=== PATIENT | male | born 1965 | race Caucasian/White ===

== ENCOUNTER 2017-08-04 10:40 | Day surgery (SDC) | payer MEDICAID ==
[2017-06-16 10:40] VITALS: BMI 34.4
[2017-08-04] MEDS ORDERED: Propofol 10 mg/ml Inj (20 ML) ONE (12:02)
[2017-08-04] MEDS ORDERED: Sodium Chloride 0.9% 1,000 ML IV SCH (13:30)
[2017-08-04 13:47] VITALS: BP 133/88; PULSE 47; RESP 18; TEMP 97.6; O2SAT 100
== END 2017-08-04 13:38 | disposition home or self-care (01) ==
LOC: ENDO 10:40
PROVIDERS: ATTEND Internal Medicine
DX: R10.30 Lower abdominal pain, unspecified (principal); K64.8 Other hemorrhoids; E11.9 Type 2 diabetes mellitus without complications; Z79.84 Long term (current) use of oral hypoglycemic drugs
CPT/HCPCS: 45378; 82948; J2001; J2704; J7040 ×2

== ENCOUNTER 2018-03-27 18:26 | Observation (INO) | payer OTHER, MEDICAID ==
[2018-03-27 18:50] VITALS: BMI 36.0
--- NOTE | 2018-03-27 19:46 | ED PDOC ---
Arrival/HPI - General Chief Complaint: Syncope Time Seen by Provider: 03/27/18 19:15 Historian: Patient, Clinical Application Specialist - History of Present Illness Narrative History of Present Illness (Text): 03/27/18 19:46 Patient is a 52 year old male who presents to the Emergency department with his son complaining of experiencing a syncopal episode. Patient is primarily Welsh speaking and a upper doubler was used with patient's permission. Patient states that at approximately 17:30-17:35 he was going to work when he started feeling dizzy and lost consciousness. He admits to having a headache and feeling right arm pain and numbness prior to the event. Patient woke up and found blood coming out of his nose. He denies currently experiencing any arm pain or numbness. Patient admits to experiencing chest pain but is unable to fully describe when it started or the character. His last syncopal event was approximately 6 months ago and at that time he was evaluated by his PMD, a industrial health engineer, and ENT physician. As per patient he underwent a stress test, which was fine. He also states that ENT physician evaluation was benign. Patient denies fevers, chills, cough, shortness of breath, dyspnea on exertion, abdominal pain, nausea, vomiting, diarrhea, back pain, neck pain, or any other complaint. Time/Duration: 4-6 hours Symptom Onset: Sudden Symptom Course: Improving Context: Walking Past Medical History - Provider Review Nursing Documentation Reviewed: Yes - Infectious Disease Hx of Infectious Diseases: None - Tetanus Immunization Tetanus Immunization: Unknown - Past Medical History Past Medical History: No Previous - Cardiac Hx Cardiac Disorders: No - Pulmonary Hx Respiratory Disorders: No - Neurological Hx Neurological Disorder: No - HEENT Hx HEENT Disorder: Yes (Wears glasses) - Renal Hx Renal Disorder: No - Endocrine/Metabolic Hx Endocrine Disorders: Yes Hx Diabetes Mellitus Type 2: Yes - Hematological/Oncological Hx Blood Disorders: No - Integumentary Hx Dermatological Disorder: No - Musculoskeletal/Rheumatological Hx Musculoskeletal Disorders: No - Gastrointestinal Hx Gastrointestinal Disorders: No - Genitourinary/Gynecological Hx Genitourinary Disorders: No - Psychiatric Hx Psychophysiologic Disorder: No Hx Substance Use: No - Past Surgical History Past Surgical History: No Previous - Anesthesia Hx Anesthesia Reactions: No Hx Malignant Hyperthermia: No - Suicidal Assessment Feels Threatened In Home Enviroment: No Family/Social History - Physician Review Nursing Documentation Reviewed: Yes Family/Social History: No Known Family HX Smoking Status: Never Smoked Hx Alcohol Use: Yes (1 BEER EVERY FEW WEEKS) Hx Substance Use: No Hx Substance Use Treatment: No Allergies/Home Meds Allergies/Adverse Reactions: Allergies No Known Allergies Allergy (Verified 03/27/18 18:49) Home Medications: Home Meds Medication Instructions Recorded Confirmed Alogliptin Benzoate [Alogliptin] 25 mg PO DAILY 08/04/17 08/04/17 Empagliflozin [Jardiance] 10 mg PO DAILY 08/04/17 08/04/17 MetFORMIN [glucOPHAGE] 1,000 mg PO BID 08/04/17 08/04/17 Review of Systems - Physician Review All systems were reviewed & negative as marked: Yes - Review of Systems Constitutional: absent: Fevers, Night Sweats Respiratory: absent: SOB, Cough Cardiovascular: Chest Pain, Syncope Gastrointestinal: absent: Abdominal Pain, Diarrhea, Nausea, Vomiting Genitourinary Male: absent: Urinary Output Changes Musculoskeletal: absent: Back Pain, Neck Pain Neurological: Headache, Dizziness Physical Exam Vital Signs Reviewed: Yes Vital Signs Temp Pulse Resp BP Pulse Ox 03/27/18 18:50 98.6 F 76 18 144/87 95 Temperature: Afebrile Blood Pressure: Normal Pulse: Regular Respiratory Rate: Normal Appearance: Positive for: Well-Appearing Mental Status: Positive for: Alert and Oriented X 3 - Systems Exam Head: Present: Atraumatic, Normocephalic Pupils: Present: PERRL Extroacular Muscles: Present: EOMI Conjunctiva: Present: Normal Mouth: Present: Moist Mucous Membranes Nose (Internal): Present: Normal Inspection. No: Septal Hematoma, Epistaxis Neck: Present: Normal Range of Motion Respiratory/Chest: Present: Clear to Auscultation, Good Air Exchange. No: Respiratory Distress, Accessory Muscle Use Cardiovascular: Present: Regular Rate and Rhythm, Normal S1, S2. No: Murmurs Abdomen: No: Tenderness, Distention, Peritoneal Signs Back: Present: Normal Inspection Upper Extremity: Present: Normal Inspection. No: Cyanosis, Edema Lower Extremity: Present: Normal Inspection. No: Edema Neurological: Present: GCS=15, CN II-XII Intact, Speech Normal Skin: Present: Warm, Dry, Normal Color. No: Rashes Psychiatric: Present: Alert, Oriented x 3, Normal Insight, Normal Concentration Medical Decision Making ED Course and Treatment: 03/27/18 19:46 Impression: 52 year old male complaining of experiencing an episode of syncope approximately 3 hours ago. Differential Diagnosis included but are not limited to: Plan: --Maxillofacial CT without Contrast -- Head CT without Contrast -- EKG -- Labs -- Cardiac enzymes -- Blood work -- Orthostatic vital signs. -- Reassess and disposition Prior Visits: Notes and results from previous visits were reviewed. Progress Notes: 03/27/18 21:56 admit deferred to hospitalist by dr. aldridge 03/27/18 22:41 admit accepted by the hospitalist dr. garcia, patient to be admitted for syncopal event, no acute symptoms prior to the event such as headache/chest pain/abdominal pain 03/27/18 22:43 - Lab Interpretations Lab Results: Lab Results 03/27/18 19:24: POC Glucose (mg/dL) 125 H - RAD Interpretation Narrative RAD Interpretations (Text): 03/27/18 21:59 CT Head Without IV contrast. CLINICAL HISTORY: DIZZY AND FELL TECHNIQUE: Axial computed tomography images of the head/brain without intravenous contrast. COMPARISON: None provided. FINDINGS: BRAIN No acute intraparenchymal hemorrhage. No mass lesion. No CT evidence for acute territorial infarct. No midline shift or extra-axial collections. VENTRICLES: No hydrocephalus. ORBITS: The orbits are unremarkable. SINUSES AND MASTOIDS: The paranasal sinuses and mastoid air cells are clear. BONES: No fracture. SOFT TISSUES: Unremarkable. IMPRESSION: No acute intracranial abnormality. 03/27/18 21:59 CT Maxillofacial Without IV contrast. CLINICAL HISTORY: DIZZY AND FELL TECHNIQUE: Axial computed tomography images of the face without intravenous contrast. Sagittal and coronal reformatted images were generated. CONTRAST: Without COMPARISON: None provided. FINDINGS: BONES: No acute fracture or aggressive appearing osseous lesion. The mandible is intact. SOFT TISSUES: The paranasal soft tissues are unremarkable. SINUSES: Minimal polypoid changes left maxillary sinus. ORBITS: The orbits are normal. No retrobulbar hematoma or mass. IMPRESSION: No acute osseous abnormality demonstrated. Radiology Orders: 03/27/18 19:22 HEAD W/O CONTRAST [CT] Stat 03/27/18 19:40 MAXILLOFACIAL W/O CONTRAST [CT] Stat Business Systems Developer: Radiologist - EKG Interpretation EKG Interpretation (Text): 03/27/18 20:15 1917: nsr at 71 bpm, nml qrs, nml axis, no acute sttw abn Interpreted by ED Physician: Yes - Scribe Statement The provider has reviewed the documentation as recorded by the Scribe Butch Lisetkong Provider Scribe Attestation: All medical record entries made by the Scribe were at my direction and personally dictated by me. I have reviewed the chart and agree that the record accurately reflects my personal performance of the history, physical exam, medical decision making, and the department course for this patient. I have also personally directed, reviewed, and agree with the discharge instructions and disposition. Disposition/Present on Arrival - Present on Arrival Any Indicators Present on Arrival: No History of DVT/PE: No History of Uncontrolled Diabetes: Yes Urinary Catheter: No History of Decub. Ulcer: No History Surgical Site Infection Following: None - Disposition Have Diagnosis and Disposition been Completed?: Yes Diagnosis: Syncope Disposition: HOSPITALIZED Disposition Time: 21:00 Patient Plan: Admission Patient Problems: Current Active Problems Problem Status Onset Syncope Acute Condition: STABLE
[2018-03-27 20:07] LABS: BASO # 0.02 K/mm3 (0.0-2.0); BASO % 0.5 % (0.0-3.0); EOS # 0.1 (0.0-0.7); EOS % 2.9 % (1.5-5.0); GRAN # 2.5 (1.4-6.5); GRAN % 56.4 % (50.0-68.0); LYMPH # 1.4 (1.2-3.4); LYMPH % 32.5 % (22.0-35.0); MEAN CELL VOLUME 81.4 fl (80.0-105.0); MEAN CORPUSCULAR HEMOGLOBIN 27.5 pg (25.0-35.0); MEAN CORPUSCULAR HGB CONC 33.8 g/dl (31.0-37.0); MEAN PLATELET VOLUME 10.3 fl (7.0-11.0); MONO # 0.3 (0.1-0.6); MONO % 7.7 % (1.0-6.0); RBC 4.73 10^6/uL (3.5-6.1); WHITE BLOOD COUNT 4.4 10^3/ul (4.5-11.0)
[2018-03-27 20:12] LABS: BLOOD UREA NITROGEN 22 mg/dL (7-21); INR 1.11; PARTIAL THROMBOPLASTIN TIME 29.1 Seconds (25.1-36.5); PROTHROMBIN TIME 12.7 SECONDS (9.4-12.5)
[2018-03-27 20:13] LABS: ALB/GLOB RATIO 1.2 (1.1-1.8); ALBUMIN 4.3 g/dL (3.0-4.8); ALT/SGPT 35 U/L (7-56); AST/SGOT 34 U/L (17-59); CALCIUM 9.6 mg/dL (8.4-10.5); GFR NON-AFRICAN AMERICAN > 60
[2018-03-27 20:24] LABS: TROPONIN I < 0.01 ng/mL
[2018-03-28] MEDS ORDERED: Dextrose 50% SYRINGE Inj (50 ml) IV PRN (00:02)
--- NOTE | 2018-03-28 00:28 | CP.PCM.HP ---
<Miranda Krishnan - Last Filed: 03/28/18 00:05> History of Present Illness - History of Present Illness History of Present Illness: 52yo male PMHx DM2, HTN?, HLD? and multiple episodes of dizziness/vertigo presents with dizziness and an episode of syncope that occured at 5pm on day of admission. Patient reports he was walking to work and started to feel dizzy and fell and hit his face. He reports LOC for 1-2 minutes and woke up when he noticed he was bleeding from his nose. Patient was with a friend who witnessed his fall and did not report any seizure like activity ie biting his tongue, eyes rolled back, loss of bowel/bladder movement, tonic-clonic movement in any extremity. Patient reports that prior to the episode he was feeling dizzy and weak and slightly short of breath. He reports he has having such episodes for the past year and his last episode was 3 months ago. When he returned home after his fall he checked his blood sugar which was 212. Patient denied any change in gait or any focal weakness. Patient also complained of a 6/10 frontal headache after the episode and some tinnitus at the time of the event. Of note, patient was seen by Dr. Mcrae in the past and was told to be on Meclizine but patient did not continue the medication. Patient was also seen by ENT 1 month ago and exam was unremarkable as per patient. Patient was also seen by Dr. Lozano cardiology for a stress test 1 year ago which was unremarkable as per the patientl PMHx: DM2, HTN?, HLD? PSurgHx: denies Meds: metformin 1000 bid, Alogliptin 25mg po qd, Jardiance 10mg po qd, Oxycodone 5mg prn, Gabapentin 300mg po bid ALL: NKDA SocHx: smoked 10-15 cigarettes daily for 40 years- quit 2 months ago and now smokes E cigarettes [Juul], denies EtOH/drug use. Lives at home with . Works at a [employer] FamHx: father with colon ca? and CVA; mother with CAD and HTN; sister has cancer but unknown type PMD: Saleeb [last saw 5 days ago for a routine check up] Neuro: has seen Dr. Mcrae in the past Cardio: has seen Dr. Lozano in the past ENT: on - cannot remember the name Pharmacy: [facility] Insurance: [email or web address] ROS: admits: headache [frontal], dizziness, tinnitus, SOB prior to syncopal event, diffuse abdominal pain, diarrhea 1 week ago [unable to quantify], polyuria, polydipsia, numbness/tingling b/l LE denies: fever, chills, chest pain, palpitations, cough, nausea, vomiting, constipation, dysuria, melena/hematochezia, pain in b/l LE Present on Admission - Present on Admission Any Indicators Present on Admission: No Review of Systems - Review of Systems All systems: reviewed and no additional remarkable complaints except Review of Systems: as per HPI Past Patient History - Infectious Disease Hx of Infectious Diseases: None - Tetanus Immunizations Tetanus Immunization: Unknown - Past Social History Smoking Status: Never Smoked - CARDIAC Hx Cardiac Disorders: No - PULMONARY Hx Respiratory Disorders: No - NEUROLOGICAL Hx Neurological Disorder: No - HEENT Hx HEENT Problems: Yes (Wears glasses) - RENAL Hx Chronic Kidney Disease: No - ENDOCRINE/METABOLIC Hx Endocrine Disorders: Yes Hx Diabetes Mellitus Type 2: Yes - HEMATOLOGICAL/ONCOLOGICAL Hx Blood Disorders: No - INTEGUMENTARY Hx Dermatological Problems: No - MUSCULOSKELETAL/RHEUMATOLOGICAL Hx Musculoskeletal Disorders: No - GASTROINTESTINAL Hx Gastrointestinal Disorders: No - GENITOURINARY/GYNECOLOGICAL Hx Genitourinary Disorders: No - PSYCHIATRIC Hx Psychophysiologic Disorder: No Hx Substance Use: No - SURGICAL HISTORY Hx Surgeries: No - ANESTHESIA Hx Anesthesia Reactions: No Hx Malignant Hyperthermia: No Meds Allergies/Adverse Reactions: Allergies Allergy/AdvReac Type Severity Reaction Status Date / Time No Known Allergies Allergy Verified 03/27/18 18:49 Physical Exam - Constitutional Appears: Non-toxic, No Acute Distress - Head Exam Head Exam: ATRAUMATIC, NORMAL INSPECTION, NORMOCEPHALIC - Eye Exam Eye Exam: EOMI, Normal appearance, Nystagmus (horizontal), PERRL. absent: Conjunctival injection, Scleral icterus - ENT Exam ENT Exam: Mucous Membranes Moist, Normal Oropharynx, TM's Normal Bilaterally - Neck Exam Neck exam: Positive for: Full Rom. Negative for: Lymphadenopathy - Respiratory Exam Respiratory Exam: Clear to Auscultation Bilateral, NORMAL BREATHING PATTERN. absent: Accessory Muscle Use, Rales, Rhonchi, Wheezes, Respiratory Distress - Cardiovascular Exam Cardiovascular Exam: REGULAR RHYTHM, +S1, +S2. absent: Systolic Murmur - GI/Abdominal Exam GI & Abdominal Exam: Normal Bowel Sounds, Soft. absent: Firm, Guarding, Rigid, Tenderness - Rectal Exam Rectal Exam: Deferred - Extremities Exam Extremities exam: Positive for: normal capillary refill, normal inspection, pedal pulses present. Negative for: pedal edema - Back Exam Back exam: NORMAL INSPECTION. absent: rash noted - Neurological Exam Neurological exam: Alert, CN II-XII Intact, Oriented x3 - Psychiatric Exam Psychiatric exam: Normal Affect, Normal Mood - Skin Skin Exam: Dry, Intact, Normal Color, Warm Results - Vital Signs Recent Vital Signs: Last Vital Signs Temp 98.6 F 03/27/18 18:50 Pulse 76 03/27/18 18:50 Resp 18 03/27/18 18:50 BP 144/87 03/27/18 18:50 Pulse Ox 95 03/27/18 18:50 - Labs Result Diagrams: 03/27/18 19:56 03/27/18 19:56 Labs: Laboratory Results - last 24 hr 03/27/18 03/27/18 03/27/18 19:24 19:56 19:56 WBC 4.4 L D RBC 4.73 Hgb 13.0 L Hct 38.5 L MCV 81.4 MCH 27.5 MCHC 33.8 RDW 14.0 Plt Count 221 MPV 10.3 Gran % 56.4 Lymph % (Auto) 32.5 Snyder % (Auto) 7.7 H Eos % (Auto) 2.9 Baso % (Auto) 0.5 Gran # 2.50 Lymph # (Auto) 1.4 Snyder # (Auto) 0.3 Eos # (Auto) 0.1 Baso # (Auto) 0.02 PT INR APTT Sodium 139 Potassium 3.8 Chloride 104 Carbon Dioxide 26 Anion Gap 14 BUN 22 H Creatinine 1.0 Est GFR ( Amer) > 60 Est GFR (Non-Af Amer) > 60 POC Glucose (mg/dL) 125 H Random Glucose 115 H Calcium 9.6 Magnesium 1.9 Total Bilirubin 0.4 AST 34 ALT 35 Alkaline Phosphatase 70 Troponin I < 0.01 Total Protein 8.0 Albumin 4.3 Globulin 3.7 Albumin/Globulin Ratio 1.2 03/27/18 19:56 WBC RBC Hgb Hct MCV MCH MCHC RDW Plt Count MPV Gran % Lymph % (Auto) Snyder % (Auto) Eos % (Auto) Baso % (Auto) Gran # Lymph # (Auto) Snyder # (Auto) Eos # (Auto) Baso # (Auto) PT 12.7 H INR 1.11 APTT 29.1 Sodium Potassium Chloride Carbon Dioxide Anion Gap BUN Creatinine Est GFR ( Amer) Est GFR (Non-Af Amer) POC Glucose (mg/dL) Random Glucose Calcium Magnesium Total Bilirubin AST ALT Alkaline Phosphatase Troponin I Total Protein Albumin Globulin Albumin/Globulin Ratio Assessment & Plan - Assessment and Plan (Free Text) Assessment: 52yo male PMHx DM2, HTN?, HLD? and multiple episodes of dizziness/vertigo presents with dizziness and an episode of syncope that occured at 5pm on day of admission. Patient admitted to [facility] for further management Plan: Dizziness and syncope -dizziness likely 2/2 to BPPV; syncope 2/2 to cardiac etiology vs neurological etiology -Head CT: prelim unremarkable- f/u official read -Maxillofacial CT: prelim unremarkable- f/u official read -Meclizine 25mg po bid -physical therapy -f/u AM labs -Neuro consult: Dr. Mcrae Chest pain prior to syncope -troponin negative x 1 f/u troponin x 2 -EKG: NSR -f/u Echo -consider Cardiology consult Abdominal pain and diarrhea -unremarkable abdominal exam -monitor Hx of DM2 -f/u HgbA1c -RISS achs -Accucheck achs -continue home Neurontin 300 q12 for neuropathy -polydipsia and polyuria likely secondary to DM2 Hx of HLD? -f/u FLP Hx of HTN? -monitor off medications -maintain normotension DVT ppx: SCDs and Heparin [id number] Diet: HHD with INTERMEDIATE Discussed with Dr. Leonel Krishnan PGY3 <Dexter Carter - Last Filed: 03/28/18 01:42> Results - Vital Signs Recent Vital Signs: Last Vital Signs Temp 98.6 F 03/27/18 18:50 Pulse 76 03/27/18 18:50 Resp 18 03/27/18 18:50 BP 144/87 03/27/18 18:50 Pulse Ox 98 03/28/18 00:38 - Labs Result Diagrams: 03/27/18 19:56 03/27/18 19:56 Labs: Laboratory Results - last 24 hr 03/27/18 03/27/18 03/27/18 19:24 19:56 19:56 WBC 4.4 L D RBC 4.73 Hgb 13.0 L Hct 38.5 L MCV 81.4 MCH 27.5 MCHC 33.8 RDW 14.0 Plt Count 221 MPV 10.3 Gran % 56.4 Lymph % (Auto) 32.5 Snyder % (Auto) 7.7 H Eos % (Auto) 2.9 Baso % (Auto) 0.5 Gran # 2.50 Lymph # (Auto) 1.4 Snyder # (Auto) 0.3 Eos # (Auto) 0.1 Baso # (Auto) 0.02 PT INR APTT Sodium 139 Potassium 3.8 Chloride 104 Carbon Dioxide 26 Anion Gap 14 BUN 22 H Creatinine 1.0 Est GFR ( Amer) > 60 Est GFR (Non-Af Amer) > 60 POC Glucose (mg/dL) 125 H Random Glucose 115 H Calcium 9.6 Magnesium 1.9 Total Bilirubin 0.4 AST 34 ALT 35 Alkaline Phosphatase 70 Troponin I < 0.01 Total Protein 8.0 Albumin 4.3 Globulin 3.7 Albumin/Globulin Ratio 1.2 03/27/18 19:56 WBC RBC Hgb Hct MCV MCH MCHC RDW Plt Count MPV Gran % Lymph % (Auto) Snyder % (Auto) Eos % (Auto) Baso % (Auto) Gran # Lymph # (Auto) Snyder # (Auto) Eos # (Auto) Baso # (Auto) PT 12.7 H INR 1.11 APTT 29.1 Sodium Potassium Chloride Carbon Dioxide Anion Gap BUN Creatinine Est GFR ( Amer) Est GFR (Non-Af Amer) POC Glucose (mg/dL) Random Glucose Calcium Magnesium Total Bilirubin AST ALT Alkaline Phosphatase Troponin I Total Protein Albumin Globulin Albumin/Globulin Ratio Attending/Attestation - Attestation I have personally seen and examined this patient.: Yes I have fully participated in the care of the patient.: Yes I have reviewed all pertinent clinical information: Yes
[2018-03-28] MEDS: Insulin Lispro (humaLOG) LOW Coverage SC SCH ×3 (01:31→12:22)
[2018-03-28 02:28] LABS: URINE BILIRUBIN NEGATIVE (NEGATIVE); URINE BLOOD NEGATIVE (NEGATIVE); URINE GLUCOSE (UA) >=1000 mg/dL (NEGATIVE); URINE LEUKOCYTE ESTERASE NEGATIVE Leu/uL (NEGATIVE); URINE PROTEIN NEGATIVE mg/dL (<30 mg/dL)
[2018-03-28 02:47] LABS: URINE APPEARANCE CLEAR (CLEAR); URINE COLOR YELLOW (YELLOW)
[2018-03-28 07:03] VITALS: O2SAT 94
[2018-03-28 07:15] LABS: BASO # 0.01 K/mm3 (0.0-2.0); BASO % 0.2 % (0.0-3.0); EOS # 0.1 (0.0-0.7); EOS % 2.9 % (1.5-5.0); GRAN # 2.05 (1.4-6.5); GRAN % 49.2 % (50.0-68.0); HEMOGLOBIN 12.7 g/dL (14.0-18.0); LYMPH # 1.7 (1.2-3.4); LYMPH % 41.2 % (22.0-35.0); MEAN CELL VOLUME 81.8 fl (80.0-105.0); MEAN CORPUSCULAR HEMOGLOBIN 26.8 pg (25.0-35.0); MEAN CORPUSCULAR HGB CONC 32.8 g/dl (31.0-37.0); MEAN PLATELET VOLUME 10.2 fl (7.0-11.0); MONO # 0.3 (0.1-0.6); MONO % 6.5 % (1.0-6.0); RBC 4.73 10^6/uL (3.5-6.1); RED CELL DISTRIBUTION WIDTH 13.9 % (11.5-14.5); WHITE BLOOD COUNT 4.2 10^3/ul (4.5-11.0)
[2018-03-28 07:28] LABS: ALB/GLOB RATIO 1.1 (1.1-1.8); ALT/SGPT 31 U/L (7-56); AST/SGOT 33 U/L (17-59); BLOOD UREA NITROGEN 23 mg/dL (7-21); CALCIUM 9.5 mg/dL (8.4-10.5); GFR NON-AFRICAN AMERICAN > 60; HDL CHOLESTEROL 34 mg/dL (29-60)
[2018-03-28 07:38] LABS: LDL CHOLESTEROL 89 mg/dL (0-129)
[2018-03-28 07:45] LABS: FREE T4 1.18 ng/dL (0.78-2.19)
--- NOTE | 2018-03-28 09:23 | CARD ---
APPROVED REPORT Date of service: 03/27/2018 EKG Measurement Heart [id number] <Conclusion> Normal sinus rhythm Normal ECG
--- NOTE | 2018-03-28 10:14 | CT ---
Date of service: 03/27/2018 PROCEDURE: CT HEAD WITHOUT CONTRAST. HISTORY: trauma COMPARISON: 02/04/2016 TECHNIQUE: Axial computed tomography images were obtained through the head/brain without intravenous contrast. Radiation dose: Total exam DLP = 875 mGy-cm. This CT exam was performed using one or more of the following dose reduction techniques: Automated exposure control, adjustment of the mA and/or kV according to patient size, and/or use of iterative reconstruction technique. FINDINGS: HEMORRHAGE: No intracranial hemorrhage. BRAIN: No mass effect or edema. No atrophy or chronic microvascular ischemic changes. VENTRICLES: Unremarkable. No hydrocephalus. CALVARIUM: Unremarkable. PARANASAL SINUSES: Unremarkable as visualized. No significant inflammatory changes. MASTOID AIR CELLS: Unremarkable as visualized. No inflammatory changes. OTHER FINDINGS: The report concurs with the preliminary [facility] report IMPRESSION: No acute findings
--- NOTE | 2018-03-28 10:19 | CT ---
Date of service: 03/27/2018 PROCEDURE: CT MAXILLOFACIAL BONES WITHOUT CONTRAST HISTORY: trauma COMPARISON: None available. TECHNIQUE: Contiguous axial CT images of the maxillofacial bones were obtained. Coronal and sagittal reformats were generated. Radiation dose: Total exam DLP = 904.3 mGy-cm. This CT exam was performed using one or more of the following dose reduction techniques: Automated exposure control, adjustment of the mA and/or kV according to patient size, and/or use of iterative reconstruction technique. FINDINGS: NASAL BONES: Unremarkable. ORBITS: Unremarkable. PARANASAL SINUSES/ MASTOIDS: Clear. MAXILLA: Unremarkable. MANDIBLE/ TEMPOROMANDIBULAR JOINTS: Unremarkable. SKULL BASE: Unremarkable. TEMPORAL BONES: Middle ears and mastoid grossly unremarkable. OTHER FINDINGS: The report concurs with the preliminary [facility] report IMPRESSION: Unremarkable non contrast enhanced CT of the maxillofacial bones.
[2018-03-28 12:44] LABS: FOLATE 4.8 ng/mL
--- NOTE | 2018-03-28 15:56 | CON ---
DATE: 03/28/2018 NEUROLOGY CONSULTATION CHIEF COMPLAINT: Syncope/vertigo. HISTORY OF PRESENT ILLNESS: This is a 52-year-old man with history of type 2 diabetes mellitus, hypertension, dyslipidemia who had multiple episodes of dizziness in terms of lightheadedness and vertigo in the past and presented with dizziness in terms of lightheadedness with an episode of syncope that occurred around 5:00 p.m. on the day of admission while he was walking to work and started to feel lightheaded and spinning sensation of the room and hit his face on the ground, lost consciousness for 1 to 2 minutes and woke up and noticed he was bleeding from the nose. His CAT scan of the head showed no acute intracranial abnormality. No history of any seizures, meningitis, or trauma-induced seizures in the past. He reports of feeling lightheaded and had such episodes in the past. About 3 months ago, he also had occasional paroxysmal vertigo. His CAT scan of the head no acute intracranial abnormality. Currently, he is no longer dizzy. He says he is being given Antivert 25 mg p.o. b.i.d. which did help. He is on gabapentin for neuropathic relief. PAST MEDICAL HISTORY: As above. SOCIAL HISTORY: He is smoker, quit 2 months ago, now he smokes 3 cigarettes. No illicit drug use or EtOH abuse. ALLERGIES: NO KNOWN DRUG ALLERGIES. MEDICATIONS: Reviewed by nurses' reconciliation sheet. FAMILY HISTORY: Noncontributory. REVIEW OF SYSTEMS: Fourteen-point review of systems is negative except as per the HPI. LABORATORY DATA: Sodium is 139, potassium 3.6, chloride 103, carbon dioxide 28, BUN of 23, creatinine of 1, random glucose of 111. A1c 6.3. PHYSICAL EXAMINATION: VITAL SIGNS: Temperature 98.1, pulse rate of 62, blood pressure of 120/72, respiratory rate of 21, and oxygen saturation 98% by room air. GENERAL: The patient is sitting up in bed, in no acute distress. HEENT: Atraumatic, normocephalic. PERRLA. Extraocular muscles intact. NECK: Supple. No JVD, no adenopathy noted. LUNGS: Clear to auscultation. No adventitious sounds. HEART: S1 and S2. Normal rate and rhythm. No murmurs, rubs, or gallops. ABDOMEN: Soft, nontender, and nondistended. Bowel sounds are present. EXTREMITIES: No clubbing. No cyanosis. Peripheral pulses 2+ felt bilaterally. NEUROLOGIC: The patient is alert and oriented to person, place, month, and year. Speech is fluent without any errors. Cranial nerves II through XII intact. Motor: Moves all extremities equally. Toes are downgoing bilaterally. Sensory: Light touch, pinprick, proprioception, and vibration are intact. DTRs are 2+ throughout. Coordination: Sesilt-bf-iwiw intact. No dysmetria noted. Gait is deferred for now. ASSESSMENT: This is a 52-year-old man with past medical history of type of diabetes mellitus, questionable hypertension, dyslipidemia who had multiple episodes of dizziness and vertigo who presented with dizziness and an episode of syncope. There could be most likely a vasovagal component superimposed underlying benign positional vertigo. CAT scan of the head showed no acute intracranial abnormality. At this time, we would recommend: 1. Outpatient vestibular therapy for his underlying vertigo. 2. Follow instruction on diet. 3. Meclizine 25 mg p.o. b.i.d. at the acute onset of vertigo. 4. Keep his blood sugar between 140 to 180. Once again, he is clinically stable from my standpoint. Follow up with Cardiology. Orthostatics are negative. Antony Mcrae MD
--- NOTE | 2018-03-28 16:15 | CARD ---
APPROVED REPORT Date of service: 03/28/2018 EXAM: Two-dimensional and M-mode echocardiogram with Doppler and color Doppler. INDICATION Syncope 2D DIMENSIONS Left Atrium (2D)3.9 (1.6-4.0cm)IVSd1.1 (0.7-1.1cm) LVDd4.9 (3.9-5.9cm)PWd1.1 (0.7-1.1cm) LVDs3.1 (2.5-4.0cm)FS (%) 36.1 % LVEF (%)65.5 (>50%) M-Mode DIMENSIONS Aortic Root3.30 (2.2-3.7cm)Aortic Cusp Exc.1.90 (1.5-2.0cm) Aortic Valve AoV Peak Hspuhdbm931.0cm/Stew Peak GR.10mmHg Mitral Valve MV E Gzwnnfso13.2cm/sMV A Agcaseav19.4cm/sE/A ratio1.2 TDI E/Lateral E'0.0E/Medial E'0.0 Tricuspid Valve TR Peak [id number]/sRAP [id number] Peak Gr.14mmHg [id number] LEFT VENTRICLE The left ventricle is normal size. There is normal left ventricular wall thickness. The left ventricular function is normal. The left ventricular ejection fraction is within the normal range. There is normal LV segmental wall motion. The left ventricular diastolic function is normal. RIGHT VENTRICLE The right ventricle is normal size. There is normal right ventricular wall thickness. The right ventricular systolic function is normal. ATRIA The left atrium size is normal. The right atrium size is normal. AORTIC VALVE The aortic valve is normal in structure. No aortic regurgitation is present. There is no aortic valvular stenosis. MITRAL VALVE The mitral valve is normal in structure. There is no mitral valve regurgitation noted. There is no mitral valve stenosis. TRICUSPID VALVE The tricuspid valve is normal in structure. There is trace tricuspid regurgitation. PULMONIC VALVE The pulmonary valve is normal in structure. There is trace pulmonic valvular regurgitation. GREAT VESSELS The aortic root is normal in size. The IVC is normal in size and collapses >50% with inspiration. PERICARDIAL EFFUSION There is no pericardial effusion. <Conclusion> The left ventricle is normal size. There is normal left ventricular wall thickness. The left ventricular function is normal. The left ventricular ejection fraction is within the normal range. There is normal LV segmental wall motion. The left ventricular diastolic function is normal.
--- NOTE | 2018-03-28 17:17 | CP.PCM.DIS ---
<Urban Arnett - Last Filed: 03/28/18 17:21> Provider - Provider Date of Admission: 03/27/18 22:42 Attending physician: Lenora Mandel MD Primary care physician: Eduardo Ayala MD Time Spent in preparation of Discharge (in minutes): 45 Diagnosis - Discharge Diagnosis (1) Syncope Status: Acute Priority: High (2) Vertigo Status: Acute Priority: High Hospital Course - Lab Results Lab Results: Most Recent Lab Values WBC 4.2 10^3/ul (4.5-11.0) L 03/28/18 06:30 RBC 4.73 10^6/uL (3.5-6.1) 03/28/18 06:30 Hgb 12.7 g/dL (14.0-18.0) L 03/28/18 06:30 Hct 38.7 % (42.0-52.0) L 03/28/18 06:30 MCV 81.8 fl (80.0-105.0) 03/28/18 06:30 MCH 26.8 pg (25.0-35.0) 03/28/18 06:30 MCHC 32.8 g/dl (31.0-37.0) 03/28/18 06:30 RDW 13.9 % (11.5-14.5) 03/28/18 06:30 Plt Count 193 10^3/uL (120.0-450.0) 03/28/18 06:30 MPV 10.2 fl (7.0-11.0) 03/28/18 06:30 Gran % 49.2 % (50.0-68.0) L 03/28/18 06:30 Lymph % (Auto) 41.2 % (22.0-35.0) H 03/28/18 06:30 [place] % (Auto) 6.5 % (1.0-6.0) H 03/28/18 06:30 Eos % (Auto) 2.9 % (1.5-5.0) 03/28/18 06:30 Baso % (Auto) 0.2 % (0.0-3.0) 03/28/18 06:30 Gran # 2.05 (1.4-6.5) 03/28/18 06:30 Lymph # (Auto) 1.7 (1.2-3.4) 03/28/18 06:30 [place] # (Auto) 0.3 (0.1-0.6) 03/28/18 06:30 Eos # (Auto) 0.1 (0.0-0.7) 03/28/18 06:30 Baso # (Auto) 0.01 K/mm3 (0.0-2.0) 03/28/18 06:30 PT 12.7 SECONDS (9.4-12.5) H 03/27/18 19:56 INR 1.11 03/27/18 19:56 APTT 29.1 Seconds (25.1-36.5) 03/27/18 19:56 Sodium 139 mmol/L (132-148) 03/28/18 06:30 Potassium 3.6 mmol/L (3.6-5.0) 03/28/18 06:30 Chloride 103 mmol/L (98-107) 03/28/18 06:30 Carbon Dioxide 28 mmol/L (21-33) 03/28/18 06:30 Anion Gap 13 (10-20) 03/28/18 06:30 BUN 23 mg/dL (7-21) H 03/28/18 06:30 Creatinine 1.0 mg/dl (0.8-1.5) 03/28/18 06:30 Est GFR ( Amer) > 60 03/28/18 06:30 Est GFR (Non-Af Amer) > 60 03/28/18 06:30 POC Glucose (mg/dL) 101 mg/dL (65-110) 03/28/18 16:12 Random Glucose 111 mg/dL (70-110) H 03/28/18 06:30 Hemoglobin A1c 6.3 % (4.2-6.5) 03/28/18 06:30 Calcium 9.5 mg/dL (8.4-10.5) 03/28/18 06:30 Phosphorus 4.3 mg/dL (2.5-4.5) 03/28/18 06:30 Magnesium 1.8 mg/dL (1.7-2.2) 03/28/18 06:30 Total Bilirubin 0.5 mg/dL (0.2-1.3) 03/28/18 06:30 AST 33 U/L (17-59) 03/28/18 06:30 ALT 31 U/L (7-56) 03/28/18 06:30 Alkaline Phosphatase 66 U/L (38-126) 03/28/18 06:30 Troponin I < 0.01 ng/mL 03/28/18 06:30 Total Protein 7.6 g/dL (5.8-8.3) 03/28/18 06:30 Albumin 4.0 g/dL (3.0-4.8) 03/28/18 06:30 Globulin 3.6 gm/dL 03/28/18 06:30 Albumin/Globulin Ratio 1.1 (1.1-1.8) 03/28/18 06:30 Triglycerides 211 mg/dL (35-160) H 03/28/18 06:30 Cholesterol 168 mg/dL (130-200) 03/28/18 06:30 LDL Cholesterol Direct 89 mg/dL (0-129) 03/28/18 06:30 HDL Cholesterol 34 mg/dL (29-60) 03/28/18 06:30 Vitamin B12 464 pg/mL (239-931) 03/28/18 06:30 25-OH Vitamin D Total 31.9 NG/ML (30.0-100.0) 03/28/18 02:10 Folate 4.8 ng/mL 03/28/18 06:30 Free T4 1.18 ng/dL (0.78-2.19) 03/28/18 06:30 TSH 3rd Generation 3.92 mIU/mL (0.46-4.68) 03/28/18 06:30 Urine Color Yellow (YELLOW) 03/28/18 01:48 Urine Appearance Clear (CLEAR) 03/28/18 01:48 Urine pH 6.0 (4.7-8.0) 03/28/18 01:48 Ur Specific [place] 1.020 (1.005-1.035) 03/28/18 01:48 Urine Protein Negative mg/dL (<30 mg/dL) 03/28/18 01:48 Urine Glucose (UA) >=1000 mg/dL (NEGATIVE) 03/28/18 01:48 Urine Ketones Negative mg/dL (NEGATIVE) 03/28/18 01:48 Urine Blood Negative (NEGATIVE) 03/28/18 01:48 Urine Nitrate Negative (NEGATIVE) 03/28/18 01:48 Urine Bilirubin Negative (NEGATIVE) 03/28/18 01:48 Urine Urobilinogen 1.0 E.U./dL (<1 E.U./dL) H 03/28/18 01:48 Ur Leukocyte Esterase Negative Homero/uL (NEGATIVE) 03/28/18 01:48 RPR Nonreactive (NONREACTIVE) 03/28/18 06:30 - Hospital Course Hospital Course: Pt is a 52yo male with PMH of DM, questionable HTN and HLD who presented to [facility] with multiple episodes of dizziness/vertigo presents with dizziness and an episode of syncope that occurred at 5pm on day of admission. Patient reported he was walking to work and started to feel dizzy and fell and hit his face. He reports LOC for 1-2 minutes and woke up when he noticed he was bleeding from his nose. Patient was with a friend who witnessed his fall and did not report any seizure like activity ie biting his tongue, eyes rolled back, loss of bowel/bladder movement, tonic-clonic movement in any extremity. Patient reported that prior to the episode he was feeling dizzy and weak and slightly short of breath. He reported he has having such episodes for the past year and his last episode was 3 months ago. When he returned home after his fall he checked his blood sugar which was 212. Patient denied any change in gait or any focal weakness. Patient also complained of a 6/10 frontal headache after the episode and some tinnitus at the time of the event. Of note, patient was seen by Dr. Mcrae in the past and was told to be on Meclizine but patient did not continue the medication. Patient was also seen by ENT 1 month ago and exam was unremarkable as per patient. Patient was also seen by Dr. Lozano cardiology for a stress test 1 year ago which was unremarkable as per the patient. Hospital Course/ Discharge On admission, pt's dizziness resolved. He was given Antivert 25mg PO which helped his symptoms. CT head was negative for hemorrhage or acute changes. Maxillofacial CT was also negative. EKG showed NSR and troponins were negative x1. 2D Echo was normal and showed EF 65%. TSH was 3.92. Orthostatic vitals were negative. Neurology was consulted who believed that his symptoms were most likely vasovagal superimposed on underlying benign positional vertigo. He was also counseled on his diet and keeping his blood sugars between 140-180. He was seen by Physical therapy who assessed his gait. He was able to ambulate without any gait disturbance or return of symptoms. Pt is discharged on Antivert 25 mg PO BID. - Date & Time of H&P Date of H&P: 03/28/18 Time of H&P: 06:00 Discharge Exam - Head Exam Head Exam: ATRAUMATIC, NORMAL INSPECTION, NORMOCEPHALIC - Eye Exam Eye Exam: EOMI, Normal appearance Pupil Exam: NORMAL ACCOMODATION - ENT Exam ENT Exam: Mucous Membranes Moist - Neck Exam Neck exam: Full Rom - Respiratory Exam Respiratory Exam: NORMAL BREATHING PATTERN, UNREMARKABLE - Cardiovascular Exam Cardiovascular Exam: RRR, +S1, +S2. absent: Diastolic murmur, Systolic Murmur - GI/Abdominal Exam GI & Abdominal Exam: Normal Bowel Sounds, Unremarkable - Extremities Exam Extremities exam: full ROM, pedal pulses present - Neurological Exam Neurological exam: Alert, CN II-XII Intact, Oriented x3 - Psychiatric Exam Psychiatric exam: Normal Affect, Normal Mood - Skin Skin Exam: Dry, Intact, Warm Discharge Plan - Discharge Medications Prescriptions: RX: Meclizine [Meclizine*] 25 mg PO BID #60 tab - Follow Up Plan Condition: STABLE Disposition: HOME/ ROUTINE Instructions: Syncope (Fainting) (DC), Syncope (DC), Syncope (GEN) Additional Instructions: 1. please follow up with your primary medical doctor within 1 week of discharge 2. please resume your home medications and take as directed 3. you will be prescribed Antivert to help with your vertigo, please take as directed 4. if your symptoms return or worsen, please return to the nearest emergency department Referrals: Eduardo Ayala MD [Primary Care Provider] - <Lenora Mandel - Last Filed: 03/29/18 14:55> Provider - Provider Date of Admission: 03/27/18 22:42 Attending physician: Lenora Mandel MD Primary care physician: Eduardo Ayala MD Hospital Course - Lab Results Lab Results: Micro Results 03/28/18 01:48 Urine,Clean Catch Urine Culture - Final No Growth (<1,000 CFU/ML) Most Recent Lab Values WBC 4.2 10^3/ul (4.5-11.0) L 03/28/18 06:30 RBC 4.73 10^6/uL (3.5-6.1) 03/28/18 06:30 Hgb 12.7 g/dL (14.0-18.0) L 03/28/18 06:30 Hct 38.7 % (42.0-52.0) L 03/28/18 06:30 MCV 81.8 fl (80.0-105.0) 03/28/18 06:30 MCH 26.8 pg (25.0-35.0) 03/28/18 06:30 MCHC 32.8 g/dl (31.0-37.0) 03/28/18 06:30 RDW 13.9 % (11.5-14.5) 03/28/18 06:30 Plt Count 193 10^3/uL (120.0-450.0) 03/28/18 06:30 MPV 10.2 fl (7.0-11.0) 03/28/18 06:30 Gran % 49.2 % (50.0-68.0) L 03/28/18 06:30 Lymph % (Auto) 41.2 % (22.0-35.0) H 03/28/18 06:30 [place] % (Auto) 6.5 % (1.0-6.0) H 03/28/18 06:30 Eos % (Auto) 2.9 % (1.5-5.0) 03/28/18 06:30 Baso % (Auto) 0.2 % (0.0-3.0) 03/28/18 06:30 Gran # 2.05 (1.4-6.5) 03/28/18 06:30 Lymph # (Auto) 1.7 (1.2-3.4) 03/28/18 06:30 [place] # (Auto) 0.3 (0.1-0.6) 03/28/18 06:30 Eos # (Auto) 0.1 (0.0-0.7) 03/28/18 06:30 Baso # (Auto) 0.01 K/mm3 (0.0-2.0) 03/28/18 06:30 PT 12.7 SECONDS (9.4-12.5) H 03/27/18 19:56 INR 1.11 03/27/18 19:56 APTT 29.1 Seconds (25.1-36.5) 03/27/18 19:56 Sodium 139 mmol/L (132-148) 03/28/18 06:30 Potassium 3.6 mmol/L (3.6-5.0) 03/28/18 06:30 Chloride 103 mmol/L (98-107) 03/28/18 06:30 Carbon Dioxide 28 mmol/L (21-33) 03/28/18 06:30 Anion Gap 13 (10-20) 03/28/18 06:30 BUN 23 mg/dL (7-21) H 03/28/18 06:30 Creatinine 1.0 mg/dl (0.8-1.5) 03/28/18 06:30 Est GFR ( Amer) > 60 03/28/18 06:30 Est GFR (Non-Af Amer) > 60 03/28/18 06:30 POC Glucose (mg/dL) 101 mg/dL (65-110) 03/28/18 16:12 Random Glucose 111 mg/dL (70-110) H 03/28/18 06:30 Hemoglobin A1c 6.3 % (4.2-6.5) 03/28/18 06:30 Calcium 9.5 mg/dL (8.4-10.5) 03/28/18 06:30 Phosphorus 4.3 mg/dL (2.5-4.5) 03/28/18 06:30 Magnesium 1.8 mg/dL (1.7-2.2) 03/28/18 06:30 Total Bilirubin 0.5 mg/dL (0.2-1.3) 03/28/18 06:30 AST 33 U/L (17-59) 03/28/18 06:30 ALT 31 U/L (7-56) 03/28/18 06:30 Alkaline Phosphatase 66 U/L (38-126) 03/28/18 06:30 Troponin I < 0.01 ng/mL 03/28/18 06:30 Total Protein 7.6 g/dL (5.8-8.3) 03/28/18 06:30 Albumin 4.0 g/dL (3.0-4.8) 03/28/18 06:30 Globulin 3.6 gm/dL 03/28/18 06:30 Albumin/Globulin Ratio 1.1 (1.1-1.8) 03/28/18 06:30 Triglycerides 211 mg/dL (35-160) H 03/28/18 06:30 Cholesterol 168 mg/dL (130-200) 03/28/18 06:30 LDL Cholesterol Direct 89 mg/dL (0-129) 03/28/18 06:30 HDL Cholesterol 34 mg/dL (29-60) 03/28/18 06:30 Vitamin B12 464 pg/mL (239-931) 03/28/18 06:30 25-OH Vitamin D Total 31.9 NG/ML (30.0-100.0) 03/28/18 02:10 Folate 4.8 ng/mL 03/28/18 06:30 Free T4 1.18 ng/dL (0.78-2.19) 03/28/18 06:30 TSH 3rd Generation 3.92 mIU/mL (0.46-4.68) 03/28/18 06:30 Urine Color Yellow (YELLOW) 03/28/18 01:48 Urine Appearance Clear (CLEAR) 03/28/18 01:48 Urine pH 6.0 (4.7-8.0) 03/28/18 01:48 Ur Specific [place] 1.020 (1.005-1.035) 03/28/18 01:48 Urine Protein Negative mg/dL (<30 mg/dL) 03/28/18 01:48 Urine Glucose (UA) >=1000 mg/dL (NEGATIVE) 03/28/18 01:48 Urine Ketones Negative mg/dL (NEGATIVE) 03/28/18 01:48 Urine Blood Negative (NEGATIVE) 03/28/18 01:48 Urine Nitrate Negative (NEGATIVE) 03/28/18 01:48 Urine Bilirubin Negative (NEGATIVE) 03/28/18 01:48 Urine Urobilinogen 1.0 E.U./dL (<1 E.U./dL) H 03/28/18 01:48 Ur Leukocyte Esterase Negative Homero/uL (NEGATIVE) 03/28/18 01:48 RPR Nonreactive (NONREACTIVE) 03/28/18 06:30 Attending/Attestation - Attestation I have personally seen and examined this patient.: Yes I have fully participated in the care of the patient.: Yes I have reviewed all pertinent clinical information, including history, physical exam and plan: Yes Notes (Text): 03/29/18 14:52 Medical record note made by the resident after discussion with my direction and input after the patient was personally seen and examined by me. I have reviewed the chart and agree that the record accurately reflects by personal performance of the history, physical exam, data review, and medical decision-making, in the course for the patient. I have also personally directed the plan of care. 52 yrs male with PMH of DM, questionable HTN and hyperlipidemia was admitted with syncope, there is no focal deficit, Telemetry is unremarkable, there was no orthostatic hypotension. Patient was evaluated by Neurology and has been started on Meclizine, will follow up with Neurology as out patient for Vestibular therapy. Patient is ambulatory at the time of discharge. Management plan was discussed in detail with patient. Education was provided.
[2018-03-28 18:11] VITALS: BP 146/81; PULSE 61; RESP 16; TEMP 98.4
== END 2018-03-28 20:35 | disposition home or self-care (01) ==
LOC: ED 18:26 → ERH 22:42 → INTOOBSV 22:42 → ERH 23:18 → 2RSO 03-28 00:54
PROVIDERS: ADMIT Hospitalist; ATTEND Internal Medicine
DX: H81.10 Benign paroxysmal vertigo, unspecified ear (principal); R55 Syncope and collapse; I10 Essential (primary) hypertension; E11.9 Type 2 diabetes mellitus without complications; E78.5 Hyperlipidemia, unspecified; H93.19 Tinnitus, unspecified ear; Z87.891 Personal history of nicotine dependence
CPT/HCPCS: 36415; 70450; 70486; 80053; 80061; 81003; 82306; 82607; 82746; 82948; 83036; 83735; 84100; 84439; 84443; 84484; 85025; 85610; 85730; 86592; 87086; 93005; 93306; 97116; 97161; 99285; G0378; G8978; G8979; J1644